=== PATIENT | female | born 1990 | race Two or more races ===

== ENCOUNTER 2023-01-27 08:48 | Emergency (ER) | payer SELFPAY ==
[~2023-01-27] VITALS: Ht 162.6 cm; Wt 59.5 kg
[2023-01-27 09:43] VITALS: BP 155/80; PULSE 92; RESP 18; TEMP 99.3; O2SAT 98
[2023-01-27] MEDS ORDERED: BENZOCAINE (DENTAL) 20 % SPRAY 60ML MT ONE (10:00)
[2023-01-27] MEDS ORDERED: ACET500T58 PO (10:16)
[2023-01-27] MEDS ORDERED: AUG875T PO (10:16)
[2023-01-27] MEDS ORDERED: IBUP1TAB5 PO (10:16)
== END 2023-01-27 10:30 | disposition home or self-care (01) ==
LOC: ER 08:48
DX: K08.89 Other specified disorders of teeth and supporting structures (principal); K02.9 Dental caries, unspecified

== ENCOUNTER 2023-03-20 19:35 | Emergency (ER) | payer MEDICAID, OTHER ==
[~2023-03-20] VITALS: Ht 162.6 cm; Wt 70.0 kg
[~2023-03-20 19:35] MED LIST: ACET500T58 PO; AUG875T PO; IBUP1TAB5 PO
[2023-03-20 21:08] LABS: Basophils # (auto) 0.1 10 ^3/uL (0-0.2); Basophils % (auto) 0.4 % (0.0-2.0); Eosinophils # (auto) 0 10 ^3/uL (0-0.8); Eosinophils % (auto) 0.3 % (0.0-7.0); Hematocrit 40.9 % (36.0-46.0); Hemoglobin 13.1 g/dL (12.2-16.2); Lymphocytes # (auto) 2.3 10 ^3/uL (0.4-5.4); Lymphocytes % (auto) 14.2 % (10.0-50.0); Mean Corpuscular Hemoglobin 27.9 pg (28.0-32.0); Mean Corpuscular Hgb Conc. 31.9 g/dL (32.0-36.0); Mean Corpuscular Volume 87.3 fL (80.0-100.0); Monocytes # (auto) 0.8 10 ^3/uL (0-1.3); Monocytes % (auto) 4.9 % (0.0-12.0); Neutrophils # (auto) 13.1 10 ^3/uL (1.6-8.6); Neutrophils % (auto) 80.2 % (37.0-80.0); Red Blood Cells 4.69 10^6/uL (4.0-5.20); White Blood Cell 16.3 10^3/uL (4.4-10.8)
[2023-03-20 21:19] LABS: Chloride 106 mmol/L (98-107); Potassium 3.4 mmol/L (3.5-5.1); Sodium 140 mmol/L (136-145)
[2023-03-20 21:20] LABS: Anion Gap 7 (5-15); Calcium 9.4 mg/dL (8.5-10.1); Carbon Dioxide 27 mmol/L (20-30)
[2023-03-20 21:25] LABS: BUN/Creatinine Ratio 24.6 (10.0-20.0); Blood Urea Nitrogen 15 mg/dL (9-23); Glucose 117 mg/dL (74-106)
[2023-03-20 21:26] LABS: Blood Alcohol < 3.0 mg/dL (<10)
[2023-03-20 21:27] LABS: Acetaminophen < 2.0 UG/ML (10.0-20.0)
[2023-03-20 21:28] LABS: Salicylate < 3.0 mg/dL (2.8-20.0)
[2023-03-21 20:00] VITALS: PULSE 88; RESP 18; O2SAT 98
[2023-03-22 08:00] VITALS: BP 105/51; PULSE 89; RESP 18; TEMP 98.2; O2SAT 99
[2023-03-22] MEDS: ACETAMINOPHEN 325 MG TAB PO ONE (10:15)
[2023-03-23] MEDS ORDERED: NITR-87 PO (09:43)
== END 2023-03-22 11:16 | disposition home or self-care (01) ==
LOC: ER 19:35 → EDBD 19:35 → ER 03-21 19:34
DX: R45.851 Suicidal ideations (principal); R10.2 Pelvic and perineal pain; F19.10 Other psychoactive substance abuse, uncomplicated; F15.10 Other stimulant abuse, uncomplicated; F11.10 Opioid abuse, uncomplicated
CPT/HCPCS: 36415; 80048; 80320; 80329; 84702; 85025

== ENCOUNTER 2023-03-23 08:47 | Emergency (ER) | payer MEDICAID ==
[~2023-03-23] VITALS: Ht 160 cm; Wt 60.4 kg
[2023-03-23 09:03] VITALS: BP 141/75; PULSE 83; RESP 16; O2SAT 100
[2023-03-23 09:32] LABS: Urine Bacteria FEW /hpf (None Seen); Urine Blood Negative /uL (Negative); Urine Clarity HAZY (Clear); Urine Protein, UAD Negative (Negative); Urine Specific Gravity 1.023 (1.001-1.035); Urine Urobilinogen Normal (Negative); Urine WBC 5 /hpf (0 - 5); Urine pH 5.5 (5.0-8.0)
[2023-03-23 09:39] LABS: Urine Color Yellow (Yellow)
[2023-03-23] MEDS ORDERED: NITR-87 PO (09:43)
== END 2023-03-23 10:36 | disposition home or self-care (01) ==
LOC: ER 08:47
DX: N39.0 Urinary tract infection, site not specified (principal); F15.10 Other stimulant abuse, uncomplicated; F17.210 Nicotine dependence, cigarettes, uncomplicated; Z59.00 Homelessness unspecified; Z79.1 Long term (current) use of non-steroidal anti-inflammatories (NSAID); Z79.2 Long term (current) use of antibiotics; Z79.899 Other long term (current) drug therapy
CPT/HCPCS: 81001

== ENCOUNTER 2023-03-23 16:36 | Emergency (ER) | payer MEDICAID ==
[~2023-03-23] VITALS: Ht 162.6 cm; Wt 60.0 kg
[~2023-03-23 16:36] MED LIST changes: +NITR-87 PO
[2023-03-23 16:53] VITALS: BP 114/76; PULSE 96; RESP 14; O2SAT 98
[2023-03-23 19:14] LABS: Basophils # (auto) 0.1 10 ^3/uL (0-0.2); Basophils % (auto) 0.8 % (0.0-2.0); Eosinophils # (auto) 0.1 10 ^3/uL (0-0.8); Eosinophils % (auto) 1.1 % (0.0-7.0); Hematocrit 39.3 % (36.0-46.0); Hemoglobin 12.9 g/dL (12.2-16.2); Lymphocytes # (auto) 3.3 10 ^3/uL (0.4-5.4); Lymphocytes % (auto) 35.6 % (10.0-50.0); Mean Corpuscular Hemoglobin 28.4 pg (28.0-32.0); Mean Corpuscular Hgb Conc. 32.8 g/dL (32.0-36.0); Mean Corpuscular Volume 86.6 fL (80.0-100.0); Monocytes # (auto) 0.5 10 ^3/uL (0-1.3); Monocytes % (auto) 5.9 % (0.0-12.0); Neutrophils # (auto) 5.2 10 ^3/uL (1.6-8.6); Neutrophils % (auto) 56.6 % (37.0-80.0); Nucleated Red Blood Cells % 0.3 %; Red Blood Cells 4.54 10^6/uL (4.0-5.20); Red Cell Distribution Width 16.3 % (11.8-14.3); White Blood Cell 9.2 10^3/uL (4.4-10.8)
[2023-03-23 19:30] LABS: Alanine Aminotransferase 13 U/L (7-40); Albumin 4.3 g/dL (3.2-4.8); Alkaline Phosphatase 121 U/L (46-116); Anion Gap 3 (5-15); Aspartate Aminotransferase 16 U/L (13-40); BUN/Creatinine Ratio 16.4 (10.0-20.0); Blood Urea Nitrogen 9 mg/dL (9-23); Calcium 8.8 mg/dL (8.7-10.4); Carbon Dioxide 30 mmol/L (20-30); Chloride 103 mmol/L (98-107); Glucose 83 mg/dL (74-106); Lipase 46 U/L (12-53); Potassium 3.8 mmol/L (3.5-5.1); Sodium 136 mmol/L (136-145)
[2023-03-23 19:31] LABS: Bilirubin, Total 0.3 mg/dL (0.2-1.0); Total Protein 7.1 g/dL (5.7-8.2)
[2023-03-23 21:53] LABS: Urine Bacteria NONE SEEN /hpf (None Seen); Urine Blood Negative /uL (Negative); Urine Clarity HAZY (Clear); Urine Color Yellow (Yellow); Urine Mucus FEW (None Seen); Urine Protein, UAD Negative (Negative); Urine Specific Gravity 1.025 (1.001-1.035); Urine Urobilinogen Normal (Negative); Urine WBC 3 /hpf (0 - 5)
== END 2023-03-23 23:51 | disposition left against medical advice (07) ==
LOC: ER 16:36
DX: R10.31 Right lower quadrant pain (principal); R10.32 Left lower quadrant pain; R11.2 Nausea with vomiting, unspecified; F17.210 Nicotine dependence, cigarettes, uncomplicated; F15.10 Other stimulant abuse, uncomplicated; Z59.00 Homelessness unspecified
CPT/HCPCS: 36415; 80053; 81001; 83690; 85025